=== PATIENT | male | born 1930 | race Caucasian/White ===

== ENCOUNTER 2017-02-17 21:47 | Emergency (ER) | payer OTHER, MEDICARE ==
[~2017-02-17] VITALS: Ht 177.8 cm; Wt 69.0 kg
[2017-02-17 23:50] VITALS: BP 150/87
[2017-02-17] MEDS ORDERED: VERAPAMIL HCL180 MG PO (23:51)
== END 2017-02-17 23:51 | disposition home or self-care (01) ==
LOC: EME 21:47
DX: S01.01XA Laceration without foreign body of scalp, initial encounter (principal); Z23 Encounter for immunization; W01.198A Fall on same level from slipping, tripping and stumbling with subsequent striking against other object, initial encounter
CPT/HCPCS: 99281; 99284